=== PATIENT | male | born 1970 | race Caucasian/White ===

== ENCOUNTER 2017-08-20 07:25 | Observation (INO) ==
[2017-08-20] MEDS ORDERED: 0.9 % Sodium Chloride 1,000 ML IVC ONE (07:43)
[2017-08-20] MEDS ORDERED: Thiamine (B-1) 100 MG in D5% in Water 50 ML IVPB STA ×2 (07:43→12:14)
[2017-08-20 07:50] LABS: Basophils % 0.4 %; Hematocrit 38.5 % (37.5-50.1); Hemoglobin 13.6 g/dL (12.9-16.9); Immature Granulocytes % 0.5 % (0-4); Lymphocytes # 1.1 K/mcL (0.6-4.6); Lymphocytes % 10.8 %; Mean Corpuscular HGB Conc 35.3 g/dL (31.6-35.5); Mean Corpuscular Hemoglobin 35.5 pg (28.0-33.3); Mean Corpuscular Volume 100.5 fL (83.0-100.0); Mean Platelet Volume 8.9 fL (9.4-12.4); Monocytes # 1.1 K/mcL (0.0-1.3); Monocytes % 11.8 %; Neutrophils # 7.4 K/mcL (1.6-8.9); Platelet Count 124 K/mcL (140-400); Red Blood Count 3.83 M/mcL (4.19-5.50); Red Cell Distribution Width 11.8 % (11.5-14.5); Segmented Neutrophils % 76.5 %
--- NOTE | 2017-08-20 07:51 | Emergency Department Note ---
Disposition Clinical Impression: Alcohol withdrawal delirium Disposition: Admitted As Inpatient Condition: Serious Referrals: NONE,PCP [Primary Care Provider] - Forms: ED Satisfaction Letter, Work/School Release Time of Disposition: 08:51 Alcohol HPI - General Chief Complaint: ED General Medical Stated Complaint: AMS Time Seen by Provider: 08/20/17 07:25 Source: patient, EMS, police Mode of arrival: EMS Limitations: altered mental status Nursing Notes Reviewed: Yes Vital Signs Reviewed: Yes - History of Present Illness HPI Narrative: Resting on August 16, 2017 was at the [facility] when they received a phone call from the [facility]'s office that there inmate need to be picked up because of an alteration of mental status as result patient was brought back to our facilities with an altered mental status he is hallucinating Nehemiah and talking nonsense there's been no reported trauma patient has a history of drinking at least a case plus of beer a day for unknown period of time he denies the fever chills lightheadedness dizziness chest pain chest pressure palpitations but the patient is talking to people that are not in the room eating things that are not on him or in the air is able to his name but unable to date place at this time history is limited Pt Subjective Complaint: alcohol withdrawal, alcohol dependence Last Drink: unknown Alcohol Type: Beer Amount of alcohol consumed: 24 daily Chronic Alcohol Use: Yes Previous Visits for Alcohol Intoxication?: No (not able to obtain) Recent Trauma: No Associated symptoms: Reports: tremors. Denies: nausea, vomiting, syncope, seizure, diaphoresis, abdominal pain, hematemesis, melena, depression, suicidality, Injury to Self, Trauma Treatments prior to arrival: other (incarceration at [facility]) - Related Data Home Medications Medication Instructions Recorded Confirmed No Known Home Drugs 04/19/17 04/19/17 Allergies Allergy/AdvReac Type Severity Reaction Status Date / Time No Known Allergies Allergy Verified 04/19/17 21:09 All systems ED: reviewed and negative except as stated. Review of Systems: As Per HPI Constitutional: Reports: weakness. Denies: fever, chills Eyes: Denies: eye pain, eye discharge ENT ED: Denies: ear pain, throat pain Cardiovascular: Denies: chest pain, palpitations Respiratory: Denies: cough, dyspnea, wheezes Gastrointestinal: Denies: abdominal pain, nausea, vomiting Genitourinary: Denies: urgency, dysuria, frequency Musculoskeletal: Denies: back pain, neck pain Integumentary: Denies: rash, abrasion Neurological: Reports: confusion. Denies: headache, weakness Psychiatric: Denies: anxiety, depression Endocrine: Denies: fatigue Hematological/Lymphatic: Denies: easy bleeding Allergic/Immunologic: Denies: facial swelling Past Medical History - Past Medical History Attestation: Yes The following information was validated with the patient. Source: patient, old records reviewed, nursing notes reviewed Medical history: Reports: diabetes, hypertension Psychiatric history: Reports: bipolar, schizophrenia - Social History Smoking Status: Current every day smoker Smokeless Tobacco Status: No Alcohol use: Reports: heavy, recent Drug use: Reports: none Physical Exam - General Limitations: altered mental status General appearance: alert, in no apparent distress, appears intoxicated ( hallucinations at visual items and talking to those not present and picking) - Head Head exam: atraumatic, normocephalic, normal inspection - Eye Eye exam: Present: normal appearance, PERRL, EOMI - ENT ENT exam: normal exam, normal oropharynx, mucous membranes moist, TM's normal bilaterally, normal external ear exam - Neck Neck exam: Present: normal inspection, full ROM, trachea midline - Chest Chest inspection: Present: normal inspection, symmetric chest wall rise - Respiratory Respiratory exam: Present: normal lung sounds bilaterally - Cardiovascular Cardiovascular exam: Present: regular rate, normal rhythm, normal heart sounds - Abdominal Exam Abdominal exam: Present: soft, Non-Tender, normal bowel sounds. Absent: mass, pulsatile mass - Expanded Upper Extremity Exam Shoulder exam: Present: normal inspection, full ROM Arm exam: Present: normal inspection, full ROM Elbow exam: Present: normal inspection, full ROM Forearm/Wrist exam: Present: normal inspection, full ROM Hand exam: Present: normal inspection, full ROM Vascular exam: Normal: capillary refill, radial pulse - Expanded Lower Extremity Exam Hip/Pelvis exam: Present: normal inspection, full ROM Upper leg exam: Present: normal inspection, full ROM Knee exam: Present: normal inspection, full ROM Lower leg exam: Present: normal inspection, full ROM Ankle exam: Present: normal inspection, full ROM Foot/toe exam: Present: normal inspection, full ROM, other (Bilateral foot tissue consistent with dermatitis most likely Migdalia and thickening of the plantar surface tracking) Neurovascular/Tendon exam: Present: normal capillary refill, normal fine/light touch. Absent: motor deficit, sensory deficit, tendon deficit Gait: observed and normal - Back Exam Back exam: Present: normal inspection, full ROM. Absent: muscle spasm - Neurological Exam Neurological exam: Present: alert, oriented X3, CN II-XII intact, normal gait - Psychiatric Psychiatric exam: Present: normal affect, normal mood - Skin Skin exam: Present: warm, dry, intact, normal color Course Course Narrative: Patient was immediately seen and examined laboratory data was ordered including a magnesium he was ordered rally bag and CT head was also done patient was cooperative for this patient that continues to be hallucinating not really knowing where he aching at things evening the Band-Aid and also playing with a pulse ox as result patient is turned over at services Dr. Yuen back the oncoming ER physician for final disposition - Reevaluation(s) Reevaluation #1: I, Dr. López, assumed care of the patient from the night physician, Dr. Ward at change of shift. Patient was in CT scan. He presented with altered mental status after being in prison for couple of days. He has a pretty extensive drinking history. He was felt to be having alcohol withdrawal symptoms. I evaluated the patient after return from CT. He is calm and cooperative but is trying to eat his pulse ox monitor and is talking about seeing spiders and he thinks he is at a friend's house. Vital signs are good but alcohol withdrawal with altered mental status concerning for DTs. Patient' s current need to be admitted to the hospital. Laboratory studies looked good. Waiting for the head CT results. If CT is negative we will talk to the hospitalist about admitting the patient. We will initiate benzodiazepine therapy now. Time: 08:21 Reevaluation #2: Patient's CAT scan of the head was normal. Labs are good. Chest x-ray is clear. I have ordered 2 mg of Ativan for the patient. I have spoken with the hospitalist was accepted the patient for admission. I will get orders written. We will administer more Ativan here in the ER as needed. We have already confirmed that there will be a sitter on the floor. Time: 08:49 Reevaluation #3: I have already had order a second round of 2 mg Ativan IV. The first 2 mg seemed to of had no effect. This is not surprising as this is very common for alcoholics in withdrawal. Patient will continue to be monitored here in the emergency department. We will give more Ativan as needed until we are able to obtain the desired effect which is reduction and agitation and improvement of heart rate. Time: 09:06 - Consultations Consultation #1: Dr. Multani, hospitalist - I discussed the case with the hospitalist. We talked about patient's presentation and current vital signs and current mental status as well as results of testing. He is accepting the patient for admission to this hospital. We will put in orders and initiate a CIWA protocol. Time: 08:48 Vital Signs Temperature 99.5 F 08/20/17 07:29 Pulse Rate 102 08/20/17 07:29 Respiratory Rate 18 08/20/17 07:29 Blood Pressure 145/87 08/20/17 07:29 O2 Sat by Pulse Oximetry 97 08/20/17 07:29 Temperature 99.5 F 08/20/17 07:29 Pulse Rate 103 08/20/17 09:02 Respiratory Rate 16 08/20/17 09:02 Blood Pressure 138/94 08/20/17 09:02 O2 Sat by Pulse Oximetry 99 08/20/17 09:02 Oxygen Delivery Oxygen Delivery Room Air Alcohol - Differential Diagnosis Differential Diagnosis: Likely: alcohol withdrawal delirium, hypomagnesemia, metabolic abnormality, alcohol withdrawal syndrome - Medical Records Medical records reviewed: Yes I reviewed the patient's medical records. - Lab Data Lab results reviewed: Yes I reviewed the patient's lab results. Result diagrams: 08/20/17 07:45 08/20/17 07:45 Lab Results 08/20/17 08/20/17 08/20/17 Range/Units 07:45 07:45 07:45 WBC 9.7 (4.3-11.1) K/mcL RBC 3.83 L (4.19-5.50) M/mcL Hgb 13.6 (12.9-16.9) g/dL Hct 38.5 (37.5-50.1) % MCV 100.5 H (83.0-100.0) fL MCH 35.5 H (28.0-33.3) pg MCHC 35.3 (31.6-35.5) g/dL RDW 11.8 (11.5-14.5) % Plt Count 124 L (140-400) K/mcL MPV 8.9 L (9.4-12.4) fL Immature Gran % 0.5 (0-4) % Seg Neutrophils % 76.5 % Lymphocytes % 10.8 % Monocytes % 11.8 % Eosinophils % 0.0 % Basophils % 0.4 % Neutrophils # 7.4 (1.6-8.9) K/mcL Lymphocytes # 1.1 (0.6-4.6) K/mcL Monocytes # 1.1 (0.0-1.3) K/mcL Eosinophils # 0.0 (0.0-0.6) K/mcL Basophils # 0.0 (0.0-0.2) K/mcL PT (9.4-12.1) Seconds INR APTT 33.2 (26.0-36.0) Seconds Sodium 137 (136-145) mEq/L Potassium 3.6 (3.5-5.1) mEq/L Chloride 98 (98-107) mEq/L Carbon Dioxide 23 (23-29) mEq/L BUN 14 (6-20) mg/dL Creatinine 1.21 (0.70-1.30) mg/dL Est GFR ( Amer) > 60 (> 60) Est GFR (Non-Af Amer) > 60 (> 60) BUN/Creatinine Ratio 12 (6-26) Glucose 71 (70-105) mg/dL Calculated Osmolality 283 (280-300) Calcium 10.5 H (8.6-10.3) mg/dL Magnesium (1.6-2.6) mg/dL Total Bilirubin 1.0 (0.3-1.0) mg/dL AST 44 H (13-39) Units/L ALT 31 (7-52) Units/L Alkaline Phosphatase 51 (34-104) Units/L Ammonia (16-53) mcmol/L Serum Total Protein 7.7 (6.4-8.9) g/dL Albumin 4.6 (3.5-5.7) g/dL Globulin 3.1 (2.4-3.5) g/dL Albumin/Globulin Ratio 1.5 (1.1-2.2) TSH (0.340-5.600) mcIU/mL Salicylates (15.0-30.0) mg/dL Acetaminophen < 10 L (10-20) mcg/mL Ethyl Alcohol < 10 (Less than 10) mg/dL 08/20/17 08/20/17 08/20/17 Range/Units 07:45 07:45 07:45 WBC (4.3-11.1) K/mcL RBC (4.19-5.50) M/mcL Hgb (12.9-16.9) g/dL Hct (37.5-50.1) % MCV (83.0-100.0) fL MCH (28.0-33.3) pg MCHC (31.6-35.5) g/dL RDW (11.5-14.5) % Plt Count (140-400) K/mcL MPV (9.4-12.4) fL Immature Gran % (0-4) % Seg Neutrophils % % Lymphocytes % % Monocytes % % Eosinophils % % Basophils % % Neutrophils # (1.6-8.9) K/mcL Lymphocytes # (0.6-4.6) K/mcL Monocytes # (0.0-1.3) K/mcL Eosinophils # (0.0-0.6) K/mcL Basophils # (0.0-0.2) K/mcL PT 15.9 H (9.4-12.1) Seconds INR 1.5 APTT (26.0-36.0) Seconds Sodium (136-145) mEq/L Potassium (3.5-5.1) mEq/L Chloride (98-107) mEq/L Carbon Dioxide (23-29) mEq/L BUN (6-20) mg/dL Creatinine (0.70-1.30) mg/dL Est GFR ( Amer) (> 60) Est GFR (Non-Af Amer) (> 60) BUN/Creatinine Ratio (6-26) Glucose (70-105) mg/dL Calculated Osmolality (280-300) Calcium (8.6-10.3) mg/dL Magnesium (1.6-2.6) mg/dL Total Bilirubin (0.3-1.0) mg/dL AST (13-39) Units/L ALT (7-52) Units/L Alkaline Phosphatase (34-104) Units/L Ammonia 37 (16-53) mcmol/L Serum Total Protein (6.4-8.9) g/dL Albumin (3.5-5.7) g/dL Globulin (2.4-3.5) g/dL Albumin/Globulin Ratio (1.1-2.2) TSH 2.829 (0.340-5.600) mcIU/mL Salicylates < 2.5 L (15.0-30.0) mg/dL Acetaminophen (10-20) mcg/mL Ethyl Alcohol (Less than 10) mg/dL 08/20/17 Range/Units 07:45 WBC (4.3-11.1) K/mcL RBC (4.19-5.50) M/mcL Hgb (12.9-16.9) g/dL Hct (37.5-50.1) % MCV (83.0-100.0) fL MCH (28.0-33.3) pg MCHC (31.6-35.5) g/dL RDW (11.5-14.5) % Plt Count (140-400) K/mcL MPV (9.4-12.4) fL Immature Gran % (0-4) % Seg Neutrophils % % Lymphocytes % % Monocytes % % Eosinophils % % Basophils % % Neutrophils # (1.6-8.9) K/mcL Lymphocytes # (0.6-4.6) K/mcL Monocytes # (0.0-1.3) K/mcL Eosinophils # (0.0-0.6) K/mcL Basophils # (0.0-0.2) K/mcL PT (9.4-12.1) Seconds INR APTT (26.0-36.0) Seconds Sodium (136-145) mEq/L Potassium (3.5-5.1) mEq/L Chloride (98-107) mEq/L Carbon Dioxide (23-29) mEq/L BUN (6-20) mg/dL Creatinine (0.70-1.30) mg/dL Est GFR ( Amer) (> 60) Est GFR (Non-Af Amer) (> 60) BUN/Creatinine Ratio (6-26) Glucose (70-105) mg/dL Calculated Osmolality (280-300) Calcium (8.6-10.3) mg/dL Magnesium 1.4 L (1.6-2.6) mg/dL Total Bilirubin (0.3-1.0) mg/dL AST (13-39) Units/L ALT (7-52) Units/L Alkaline Phosphatase (34-104) Units/L Ammonia (16-53) mcmol/L Serum Total Protein (6.4-8.9) g/dL Albumin (3.5-5.7) g/dL Globulin (2.4-3.5) g/dL Albumin/Globulin Ratio (1.1-2.2) TSH (0.340-5.600) mcIU/mL Salicylates (15.0-30.0) mg/dL Acetaminophen (10-20) mcg/mL Ethyl Alcohol (Less than 10) mg/dL - Radiology Data Radiology results reviewed: Yes I reviewed the patient's radiology results. - EKG Data EKG attestation: Yes I reviewed and interpreted this EKG. EKG results narrative: Sinus rhythm early repolarization pattern is noted rate 90 TX 155/97 QT 353 axis LVIII no reciprocal changes noted throughout the EKG that would be consistent with an RI Critical Care Time Critical Care Time: Yes Total Critical Care Time: 35 Attestation: Critical care performed: 35 minutes as a result of this patient having acute altered mental status with possible disc thing Warnicke's encephalopathy alcohol delirium or even chronic changes metabolic imbalance or even the new onset of the development of early delirium tremors based on the history that the patient does drink significant amount of alcohol on a daily basis Time is exclusive of separately billable procedures. Time includes: direct patient care, patient reassessment, coordination of patient care, interpretation of data (laboratory data, radiology data, and respiratory data), review of patient's medical records, medical consultation and documentation of patient care. Procedures included in critical care time: Procedures excluded from critical care time:
[2017-08-20 07:58] LABS: INR 1.5; Prothrombin Time 15.9 Seconds (9.4-12.1)
[2017-08-20] MEDS ORDERED: [UNRECOGNIZED DRUG - OTHER] IV ONE (08:00)
[2017-08-20] MEDS ORDERED: THIAMINE IV ONE (08:00)
[2017-08-20] MEDS ORDERED: VITAMIN K IV ONE (08:00)
[2017-08-20] MEDS ORDERED: FOLIC ACID IV ONE (08:00)
[2017-08-20] MEDS ORDERED: MVI IV ONE (08:00)
[2017-08-20 08:05] LABS: Salicylate < 2.5 mg/dL (15.0-30.0)
[2017-08-20 08:06] LABS: Acetaminophen < 10 mcg/mL (10-20); Alanine Aminotransferase 31 Units/L (7-52); Albumin 4.6 g/dL (3.5-5.7); Albumin/Globulin Ratio 1.5 (1.1-2.2); Alkaline Phosphatase 51 Units/L (34-104); Aspartate Amino Transferase 44 Units/L (13-39); BUN/Creatinine Ratio 12 (6-26); Blood Urea Nitrogen 14 mg/dL (6-20); Calcium 10.5 mg/dL (8.6-10.3); Carbon Dioxide 23 mEq/L (23-29); Chloride 98 mEq/L (98-107); Ethanol < 10 mg/dL (Less than 10); Globulin 3.1 g/dL (2.4-3.5); Glucose 71 mg/dL (70-105); Osmolality,Calculated 283 (280-300); Potassium 3.6 mEq/L (3.5-5.1); Sodium 137 mEq/L (136-145); Total Protein 7.7 g/dL (6.4-8.9); eGFR For African Americans > 60 (> 60); eGFR For Non-African Americans > 60 (> 60)
[2017-08-20] MEDS ORDERED: *HR* LORazepam 2 MG/ML VIAL IVP ONE ×2 (08:21→09:02)
[2017-08-20 08:22] LABS: Thyroid Stimulating Hormone 2.829 mcIU/mL (0.340-5.600)
[2017-08-20] MEDS ORDERED: 0.9 % Sodium Chloride 1,000 ML IVC SCH (12:14)
[2017-08-20] MEDS ORDERED: Naloxone 0.4 MG/ML INJ IVP PRN (12:14)
[2017-08-20] MEDS ORDERED: *HR* LORazepam 2 MG/ML VIAL IVP PRN (12:14)
--- NOTE | 2017-08-20 12:40 | Internal Med History&Physical ---
Date of Encounter: 08/20/17 Time of Encounter: 12:25 Assessment and Plan (1) Alcohol withdrawal delirium Current visit: Yes Status: Acute He was ordered banana bag through emergency room. Ativan will be used for sedation as needed (2) Macrocytosis without anemia Current visit: Yes Status: Acute Will order B12 and folate level in a.m. TSH and LFTs were generally unremarkable. Internal Medicine - H&P: HPI Chief complaint: Mental status change Admitted From: Emergency Dept History of present illness: Mr. Tim is a 47 year old male who was transported from the local group home after reports of altered mental status. He was evaluated in emergency room found to be lethargic. The ER note states he had consumed a case of beer daily for an unknown period of time. It was felt he was likely having withdrawal DVT with hallucinations. He was admitted to [facility] floor for ongoing care needs. He is still obtunded and cannot give any reliable history. Past Med Surg Social Fam HX - Past Medical History Medical history: diabetes, hypertension Psychiatric history: bipolar, schizophrenia - Past Surgical History Additional surgical history: dental and eye laceration repair - Social History Smoking Status: Current every day smoker Smokeless Tobacco Status: No Alcohol use: heavy, recent Drug use: none Internal Medicine - H&P: Meds No Known Home Drugs 04/19/17 [History] 3 Allergy/AdvReac Type Severity Reaction Status Date / Time No Known Allergies Allergy Verified 04/19/17 21:09 All Systems PM: A 10-system review of systems was performed and is negative for pertinent findings except as documented above in the HPI. Review of systems: Unobtainable due to obtundation. - Constitutional Vitals: Temp Pulse Resp BP Pulse Ox 99.5 F 88 16 120/66 94 08/20/17 07:29 08/20/17 10:23 08/20/17 10:23 08/20/17 10:23 08/20/17 10:23 Exam: Gen.: He is a well-developed well-nourished male lying in bed who makes no attempt answer questions. He is agitated and cursing when he arouses from lethargy HEENT: Head is atraumatic and normal cephalic. Eyes: He does not open his eyes spontaneously. Lifting his lids shows conjugate gaze. There is no scleral icterus. Mouth: He does not open his mouth for examination. Neck: There is no thyromegaly or adenopathy noted on limited exam. Heart: Regular without murmurs gallops or ectopics. Lungs: No wheezes or crackles are heard. Abdomen: Soft and nontender. No masses or guarding are noted. Extremities: There is no cyanosis edema or clubbing noted. Dorsalis pedis and posttibial pulses are 1-2 over 2 bilaterally Neurologic: Mental status: He is obtunded and does not answer questions. Cranial nerves: He has symmetric facial movements to observation. He does not protrude his tongue or follow commands to wrinkle forehead etc. Motor: He moves his arms well to observation without further formal testing done. Skin: Warm and dry Internal Med - H&P Results - Labs CBC & Chem 7: 08/20/17 07:45 08/20/17 07:45
[2017-08-20] MEDS: 0.45 % Sodium Chloride w/KCl 20 MEQ/1,000 ML MLS IVC SCH ×2 (14:04→21:45)
[2017-08-20] MEDS: Vitamin B Complex/Vit C/Vit E 1 EACH TABLET PO SCH (16:02)
[2017-08-20] MEDS: Folic Acid 1 MG TABLET PO SCH (16:02)
[2017-08-20] MEDS: Thiamine (B-1) 100 MG TABLET PO SCH (16:02)
[2017-08-20] MEDS: *HR* LORazepam 2 MG/ML VIAL IVP PRN ×4 (17:23→22:59)
--- NOTE | 2017-08-20 18:17 | Electrocardiograph Report ---
[address] [address] Test Date: 2017-08-20 Pat Name: Kyle Tim Department: [id number] Room: [facility] Gender: M Records Administrator: [id number] : 1970 Requested By: Asya Ward Order Number: [id number] Reading MD: Anthony Coy Measurements Intervals Ward Rate: 90 P: 54 NC: 155 QRS: 58 QRSD: 97 T: 56 QT: 353 QTc: 401 Interpretive Statements SINUS RHYTHM BASELINE ARTIFACT Electronically Signed On 08-20-2017 18:15:57 EDT by Anthony Coy
[2017-08-21] MEDS: *HR* LORazepam 2 MG/ML VIAL IVP PRN ×7 (01:04→23:28)
[2017-08-21] MEDS: 0.45 % Sodium Chloride w/KCl 20 MEQ/1,000 ML MLS IVC SCH ×2 (05:16→13:06)
[2017-08-21 07:11] LABS: Basophils % 0.4 %; Eosinophils # 0.1 K/mcL (0.0-0.6); Eosinophils % 0.9 %; Hematocrit 35.2 % (37.5-50.1); Hemoglobin 12.6 g/dL (12.9-16.9); Immature Granulocytes % 0.5 % (0-4); Lymphocytes # 0.8 K/mcL (0.6-4.6); Lymphocytes % 10.2 %; Mean Corpuscular HGB Conc 35.8 g/dL (31.6-35.5); Mean Corpuscular Volume 100.6 fL (83.0-100.0); Mean Platelet Volume 8.8 fL (9.4-12.4); Monocytes # 0.6 K/mcL (0.0-1.3); Monocytes % 7.9 %; Neutrophils # 6.2 K/mcL (1.6-8.9); Red Cell Distribution Width 11.7 % (11.5-14.5); Segmented Neutrophils % 80.1 %
[2017-08-21 07:19] LABS: Platelet Count 85 K/mcL (140-400)
[2017-08-21 09:09] LABS: Folate 20.9 ng/mL (3.0-16.0)
[2017-08-21] MEDS: Folic Acid 1 MG TABLET PO SCH (09:57)
[2017-08-21] MEDS: Thiamine (B-1) 100 MG TABLET PO SCH (09:57)
[2017-08-21] MEDS: Vitamin B Complex/Vit C/Vit E 1 EACH TABLET PO SCH (09:57)
--- NOTE | 2017-08-21 17:45 | Internal Med Progress Note ---
Date of Encounter: 08/21/17 Time of Encounter: 16:30 - Assessment and plan (1) Alcohol withdrawal delirium Current Visit: Yes Status: Acute Assessment and plan: August 21. Continue Ativan as needed. (2) Anemia Current Visit: Yes Status: Acute Assessment and plan: August 21. Hemoglobin has decreased to 12.6. Platelet count has decreased to 85, 000. B12 and folate levels were normal. Suspect bone marrow depression from alcohol. Will order iron testing in a.m. Qualifiers: Anemia type: unspecified type Qualified Code(s): D64.9 - Anemia, unspecified (3) Psychoses Current Visit: Yes Status: Acute Assessment and plan: August 21. I have spoken with staff at [facility] expressing my concerns about discharge and patient's need of additional evaluation including possible inpatient psychiatric evaluation and treatment. The staff member referred the situation to her supervisor paper testing. Qualifiers: Schizoaffective disorder type: unspecified Qualified Code(s): F25.9 - Schizoaffective disorder, unspecified (4) Hypomagnesemia Current Visit: Yes Status: Acute Assessment and plan: August 21. Will order magnesium supplement. - Subjective Interval history: August 21. No new problems have arisen. He was screened earlier today for suicide and a safety plan was arranged for outpatient follow-up at [facility]. His significant other friend in the room reports he is homeless and lives in his car. He has mental health diagnoses of bipolar disorder, schizophrenia, and paranoia. He has not been treated in inpatient psychiatric setting to her knowledge. He was last seen approximately 12 months ago by a [place] [facility] but did not take prescribed medications as directed and did not follow-up as directed. - Constitutional Vitals: Temp Pulse Resp BP Pulse Ox 97.9 F 81 16 151/93 98 08/21/17 15:32 08/21/17 15:32 08/21/17 15:32 08/21/17 15:32 08/21/17 15:32 Exam: He is sitting in a chair at bedside and appears in no acute distress. He is able to verbally interact somewhat with me but seems to be a fair historian at best. I reviewed his medications and lab results. Internal Medicine: Result - Labs CBC & Chem 7: 08/21/17 06:26 08/20/17 07:45 Labs: Short CBC 08/21/17 Range/Units 06:26 WBC 7.7 (4.3-11.1) K/mcL Hgb 12.6 L (12.9-16.9) g/dL Hct 35.2 L (37.5-50.1) % Plt Count 85 L (140-400) K/mcL Neutrophils # 6.2 (1.6-8.9) K/mcL - ABG Interpretation ABG results: PT/INR, D-dimer PT 15.9 Seconds (9.4-12.1) H 08/20/17 07:45 - VTE Documentation of Mechanical Device: Graduated compression elastic hosiery Consult Discharge Plan - Plan Referrals: NONE,PCP [Primary Care Provider] - 1 week
[2017-08-21] MEDS ORDERED: Magnesium Oxide 400 MG TABLET PO SCH (18:15)
[2017-08-22 00:04] VITALS: BP 144/95
[2017-08-22] MEDS: *HR* LORazepam 2 MG/ML VIAL IVP PRN (01:20)
[2017-08-22 06:21] LABS: Basophils % 0.6 %; Eosinophils # 0.1 K/mcL (0.0-0.6); Eosinophils % 1.5 %; Hematocrit 35.6 % (37.5-50.1); Hemoglobin 12.5 g/dL (12.9-16.9); Immature Granulocytes % 0.2 % (0-4); Lymphocytes # 1.1 K/mcL (0.6-4.6); Lymphocytes % 21.3 %; Mean Corpuscular HGB Conc 35.1 g/dL (31.6-35.5); Mean Corpuscular Hemoglobin 35.1 pg (28.0-33.3); Mean Platelet Volume 8.3 fL (9.4-12.4); Monocytes # 0.7 K/mcL (0.0-1.3); Monocytes % 12.7 %; Neutrophils # 3.4 K/mcL (1.6-8.9); Red Blood Count 3.56 M/mcL (4.19-5.50); Red Cell Distribution Width 11.4 % (11.5-14.5); Segmented Neutrophils % 63.7 %
[2017-08-22 06:28] LABS: Platelet Count 93 K/mcL (140-400)
[2017-08-22 06:43] LABS: BUN/Creatinine Ratio 5 (6-26); Blood Urea Nitrogen 4 mg/dL (6-20); Calcium 9.3 mg/dL (8.6-10.3); Carbon Dioxide 28 mEq/L (23-29); Chloride 104 mEq/L (98-107); Glucose 114 mg/dL (70-105); Osmolality,Calculated 286 (280-300); Potassium 3.2 mEq/L (3.5-5.1); Sodium 139 mEq/L (136-145); eGFR For African Americans > 60 (> 60); eGFR For Non-African Americans > 60 (> 60)
[2017-08-22 08:43] LABS: % Iron Saturation 7 % (20-55); Iron 18 mcg/dL (65-175); Transferrin 181 mg/dL (203-362)
[2017-08-22 09:01] LABS: Ferritin 367 ng/mL (20-250)
--- NOTE | 2017-08-22 15:21 | Discharge Summary ---
Date of Encounter: 08/22/17 Time of Encounter: 15:18 - Discharge Diagnosis (1) Alcohol withdrawal delirium Priority: Primary Status: Acute (2) Anemia Priority: Secondary Status: Acute Qualifiers: Anemia type: unspecified type Qualified Code(s): D64.9 - Anemia, unspecified (3) Psychoses Priority: Secondary Status: Acute Qualifiers: Schizoaffective disorder type: unspecified Qualified Code(s): F25.9 - Schizoaffective disorder, unspecified (4) Hypomagnesemia Priority: Secondary Status: Acute Hospital course: Mr. Tim is a 47 year old male who was transported from the local half-way after reports of altered mental status. He was evaluated in emergency room found to be lethargic. The ER note states he had consumed a case of beer daily for an unknown period of time. It was felt he was likely having withdrawal DVT with hallucinations. He was admitted to [facility] floor for ongoing care needs. Initial orders were written by the emergency room physician. I saw him on August 20 and performed the history and physical. He was given a banana bag through emergency room. Ativan was used for sedation as needed. His mental status was improved on August 21. His significant other friend reported he had history of psychosis but had not followed up as directed with mental health clinic personnel. He admitted to drinking 30+ cans of beer daily. He was seen by personnel from mental health clinic who did not feel he was suicidal. They felt he needed to be in an alcohol rehabilitation program before they were willing to make referral for placement for his psychosis. Anemia testing showed iron 18, transferrin saturation 7%, transferrin 181, ferritin 367, B12 282, and folate 20.9. On the morning of August 22 he became agitated and left AMA. - Time Spent with Patient Total time spent providing and/or coordinating discharge services: - Discharge Medications Home Medications: No Known Home Drugs 04/19/17 [History] Allergies/Adverse Reactions: 3 Allergy/AdvReac Type Severity Reaction Status Date / Time No Known Allergies Allergy Verified 04/19/17 21:09 Date of admission: 08/20/17 09:48 Primary care physician: PCP NONE - Constitutional Vitals: Temp Pulse Resp BP Pulse Ox 99.1 F 115 18 144/95 98 08/22/17 00:03 08/22/17 00:03 08/22/17 00:03 08/22/17 00:03 08/22/17 00:03 - Patient Status Disposition: Left Against Medical Advice Condition: Serious - Discharge Instructions Follow Up With: NONE,PCP [Primary Care Provider] - 1 week - VTE Documentation of Mechanical Device: Graduated compression elastic hosiery
== END 2017-08-22 07:02 | disposition left against medical advice (07) ==
LOC: INPPIK 07:25 → EMEROOPIK 07:25 → INPPIK 11:00
PROVIDERS: ADMIT Internal Medicine; ATTEND Internal Medicine